=== PATIENT | male | born 1975 | race Caucasian/White ===

== ENCOUNTER 2016-08-19 22:34 | Emergency (ER) | payer BC ==
[2016-08-19] MEDS ORDERED: ONDANSETRON HCL 4 MG/2 ML SOL IV ONE (22:46)
[2016-08-19] MEDS ORDERED: SODIUM CHLORIDE 0.9% FLUSH 10 ML SOL IV PRN (22:46)
[2016-08-19] MEDS ORDERED: KETOROLAC TROMETHAMINE 30 MG/ML SOL IV ONE (22:46)
[2016-08-19] MEDS ORDERED: ONDANSETRON HCL 4 MG/2 ML SOL ONE (22:47)
[2016-08-19] MEDS ORDERED: KETOROLAC TROMETHAMINE 30 MG/ML SOL ONE (22:47)
[2016-08-19 23:05] LABS: BASOPHILS % (AUTO) 1 % (0-3); EOSINOPHILS % (AUTO) 0 % (0-9); HEMATOCRIT 44 % (39-53); MEAN CORPUSCULAR HGB CONC 34.6 gm/dl (32.0-36.0); MONOCYTES % (AUTO) 10.5 % (0-12); NEUTROPHILS % (AUTO) 77.3 % (37-80)
[2016-08-19] MEDS ORDERED: SODIUM CHLORIDE 0.9% 1000ML 1,000 ML IV ONE (23:08)
[2016-08-19 23:24] LABS: CALCIUM 9.1 mg/dl (8.5-10.1); POTASSIUM 3.5 mMol/L (3.5-5.1)
[2016-08-19] MEDS ORDERED: HYDROMORPHONE HCL 2 MG/ML 1 ML SOL IV ONE (23:49)
[2016-08-19] MEDS ORDERED: HYDROMORPHONE HCL 2 MG/ML 1 ML SOL IV PRN (23:49)
[2016-08-19] MEDS ORDERED: HYDROMORPHONE HCL 2 MG/ML 1 ML SOL ONE (23:50)
[2016-08-20 00:38] VITALS: TEMP 97.8; O2SAT 99
[2016-08-20 01:00] VITALS: BP 166/102; PULSE 73; RESP 14
[2016-08-20 01:14] LABS: APPEARANCE,URINE Clear; BILIRUBIN,URINE NEGATIVE (NEGATIVE); COLOR,URINE Yellow; GLUCOSE, URINE (UA) NEGATIVE (NEGATIVE); KETONES,URINE 4+ (NEGATIVE); LEUKOCYTE ESTERASE ,URINE NEGATIVE (NEGATIVE); NITRATE,URINE NEGATIVE (NEGATIVE); OCCULT BLOOD,URINE NEGATIVE (NEG-TRACE); PH,URINE 8.5; UROBILINOGEN,URINE 0.2 (0.2-1.0 EU)
[2016-08-20 01:15] LABS: RBC,URINE 0-2 (0-3AV/HPF); WBC,URINE 0-2 (0-5AV/HPF)
== END 2016-08-20 01:24 | disposition short-term general hospital (02) ==
LOC: ED 22:34
DX: K37 Unspecified appendicitis (principal)
CPT/HCPCS: 74178; 80053; 81001; 82150; 85025; 99285 ×2; J1170; J1885; J2405; Q9967; 96365; 96366; 96374; 96375; 99283